=== PATIENT | female | born 1945 | race Caucasian/White ===

== ENCOUNTER 2018-04-19 09:30 | Observation (INO) ==
--- NOTE | 2018-04-19 09:38 | Emergency Department Note ---
Disposition Clinical Impression: Left arm weakness, Left leg weakness Disposition: Admitted As Inpatient Condition: Good Time of Disposition: 11:50 General Adult HPI - General Chief complaint: ED Weakness Stated complaint: left sided weakness Time Seen by Provider: 04/19/18 09:33 Source: patient Mode of arrival: EMS Limitations: no limitations Nursing Notes Reviewed: Yes Vital Signs Reviewed: Yes - History of Present Illness HPI Narrative: Patient states about 9:00 last night she noticed some weakness in her left arm and leg. She pulled something in her hand she has trouble. She has had weakness in the arm since she had her breast removed but this is more than usual. She if she goes to touch her nose her left finger moves onto her cheek rather than her nose. She denies any headaches or visual complaints or any other problems other than intermittent weakness in her legs and then fine motor control difficulty in her left arm Onset (ago): hour(s) (12 hours) Location: left, upper extremity, lower extremity Pain Scale: 0 Consistency: constant Improves with: nothing Worsens with: nothing Associated symptoms: Reports: denies other symptoms Treatments Prior to Arrival: none - Related Data Home Medications Medication Instructions Recorded Confirmed Anastrozole [Arimidex] 1 mg PO DAILY 04/19/18 04/19/18 Atenolol 100 mg PO DAILY 04/19/18 04/19/18 Furosemide [Lasix] 80 mg PO DAILY 04/19/18 04/19/18 Gabapentin 800 mg PO TID 04/19/18 04/19/18 Ketoconazole Shampoo [Nizoral 120 ml TP DAILY 04/19/18 04/19/18 Shampoo] Losartan [Cozaar] 100 mg PO DAILY 04/19/18 04/19/18 Meloxicam [Mobic] 15 mg PO DAILY 04/19/18 04/19/18 Metformin HCl [Glucophage] 1,000 mg PO BID 04/19/18 04/19/18 Triamcinolone Acet 0.1% CRM 1 appl TP BID 04/19/18 04/19/18 [Kenalog] glipiZIDE [Glucotrol] 5 mg PO DAILY 04/19/18 04/19/18 Allergies Allergy/AdvReac Type Severity Reaction Status Date / Time levofloxacin [From Levaquin] AdvReac See Verified 04/19/18 09:44 Comments All systems ED: reviewed and negative except as stated. Review of Systems: As Per HPI Constitutional: Denies: fever, chills, weakness, weight change Eyes: Denies: eye pain, eye discharge, vision change ENT ED: Denies: ear pain, throat pain, dental pain, hearing loss, epistaxis, congestion, dysphagia Cardiovascular: Denies: chest pain, palpitations, dyspnea on exertion, edema, syncope Respiratory: Denies: cough, dyspnea, wheezes, hemoptysis, stridor Gastrointestinal: Denies: abdominal pain, nausea, vomiting, diarrhea, constipation, hematemesis, melena, hematochezia Genitourinary: Denies: dysuria, frequency, hematuria, discharge Musculoskeletal: Reports: as per HPI Integumentary: Denies: rash, abrasion, lesions Neurological: Reports: as per HPI Psychiatric: Denies: anxiety, depression, suicidal thoughts, homicidal thoughts, auditory hallucinations, visual hallucinations Endocrine: Denies: fatigue Hematological/Lymphatic: Denies: easy bleeding, easy bruising Allergic/Immunologic: Reports: as per HPI Past Medical History - Past Medical History Attestation: Yes The following information was validated with the patient. Source: patient, nursing notes reviewed Physical Exam - General Limitations: no limitations General appearance: alert, in no apparent distress - Head Head exam: atraumatic, normocephalic, normal inspection - Eye Eye exam: Present: normal appearance, PERRL, EOMI - ENT ENT exam: normal exam, normal oropharynx, mucous membranes moist - Neck Neck exam: Present: normal inspection, full ROM, trachea midline - Chest Chest inspection: Present: normal inspection, symmetric chest wall rise - Respiratory Respiratory exam: Present: normal lung sounds bilaterally - Cardiovascular Cardiovascular exam: Present: regular rate, normal rhythm, normal heart sounds - Abdominal Exam Abdominal exam: Present: soft, Non-Tender. Absent: tenderness, distention, guarding, rebound, rigidity - Extremities Exam Extremities exam: Present: normal inspection, other (Left upper extremity does seem to have some difficulty with touching her nose. Her movement is inconsistent. Her right upper extremities unremarkable. Her outside physical damage appraiser strength and her leg strength is fine is 5 over 5 and equal bilaterally.) - Back Exam Back exam: Present: normal inspection - Neurological Exam Neurological exam: Present: alert, oriented X3, CN II-XII intact - Psychiatric Psychiatric exam: Present: normal affect, normal mood - Skin Skin exam: Present: warm, dry, intact, normal color Medical Decision Making - MDM Narrative Medical decision making narrative: Patient symptoms are minimal in nature she was able to ambulate from the EMS cot to the ER cot without difficulty and her symptoms present for 12 hours. We did not call a stroke alert - EKG Data EKG #1 EKG attestation: Yes I reviewed and interpreted this EKG. EKG results narrative: EKG shows normal sinus rhythm with a rate of 62 bpm first-degree AV block [place] interval is 259 ms QRS duration 98 ms QT QTC intervals 440 and 447 ms respectively P axis of 60 degrees QRS of -40 3T axis of 97 degrees I reviewed the patient's medication list
[2018-04-19] MEDS ORDERED: 0.9 % Sodium Chloride 1,000 ML IVC SCH (09:45)
[2018-04-19 09:58] LABS: Hematocrit 39.1 % (35.3-44.9); Hemoglobin 12.9 g/dL (11.5-15.4); Mean Corpuscular Hemoglobin 30.2 pg (28.0-33.3); Mean Corpuscular Volume 91.6 fL (83.0-100.0); Mean Platelet Volume 9.3 fL (9.4-12.4); Platelet Count 309 K/mcL (140-400); Red Blood Count 4.27 M/mcL (3.82-4.97); Red Cell Distribution Width 13.1 % (11.5-14.5)
[2018-04-19 10:11] LABS: Activated Partial Thrombo Time 31.2 Seconds (26.0-36.0)
[2018-04-19 10:16] LABS: Alanine Aminotransferase 20 Units/L (7-52); Albumin 4.3 g/dL (3.5-5.7); Albumin/Globulin Ratio 1.3 (1.1-2.2); Alkaline Phosphatase 50 Units/L (34-104); Aspartate Amino Transferase 26 Units/L (13-39); BUN/Creatinine Ratio 20 (6-26); Bilirubin,Total 0.7 mg/dL (0.3-1.0); Blood Urea Nitrogen 20 mg/dL (8-23); Calcium 10.1 mg/dL (8.6-10.3); Carbon Dioxide 32 mEq/L (23-29); Chloride 96 mEq/L (98-107); Globulin 3.2 g/dL (2.4-3.5); Glucose 200 mg/dL (70-105); Osmolality,Calculated 292 (280-300); Potassium 4.1 mEq/L (3.5-5.1); Sodium 137 mEq/L (136-145); Total Protein 7.5 g/dL (6.4-8.9); eGFR For Non-African Americans 55 (> 60)
[2018-04-19 10:19] LABS: Troponin I < 0.03 ng/mL (< 0.04)
[2018-04-19 10:53] LABS: Bilirubin,Urine Negative (Negative); Blood,Urine Negative (Negative); Clarity,Urine Clear (Clear); Color,Urine Yellow (Yellow); Glucose,Urine (UA) 100 mg/dL (Normal); Ketones,Urine Negative (Negative); Leukocyte Esterase,Urine Trace (Negative); Nitrite,Urine Negative (Negative); Protein,Urine Negative (Neg-Trace); Urobilinogen,Urine Normal (Normal)
[2018-04-19 11:04] LABS: RBC,Urine 0-3 per hpf (0-3); Squamous Epithelial Cell,Urine Few per lpf (None-Few)
[2018-04-19] MEDS ORDERED: Naloxone 0.4 MG/ML INJ IVP PRN (13:35)
[2018-04-19] MEDS: Gabapentin 400 MG CAPSULE PO SCH ×2 (15:01→21:08)
[2018-04-19] MEDS: 0.9 % Sodium Chloride 1,000 ML IVC SCH ×2 (15:02→22:34)
--- NOTE | 2018-04-19 15:31 | Electrocardiograph Report ---
[place] [id number] Test Date: 2018-04-19 Pat Name: Gabriella Horton Department: EDP-14 Room: [facility] Gender: F Campaign Assistant: : 1945 Requested By: Britton Call Order Number: [id number] Reading MD: Elvira Sam Measurements Intervals [place] Rate: 62 P: 6 HI: 259 QRS: -43 QRSD: 98 T: 97 QT: 440 QTc: 447 Interpretive Statements Sinus rhythm Prolonged HI interval Left anterior fascicular block Abnormal R-wave progression, late transition Left ventricular hypertrophy Electronically Signed On 04-19-2018 15:29:58 EST by Elvira Sam
[2018-04-19] MEDS: *HR* Metformin 500 MG TABLET PO SCH (17:22)
--- NOTE | 2018-04-19 18:22 | Internal Med History&Physical ---
Date of Encounter: 04/19/18 Time of Encounter: 17:50 Assessment and Plan (1) TIA (transient ischemic attack) Current visit: Yes Status: Acute She is presently on aspirin 81 mg daily at home. Dose will be immediately increased 162 mg daily. Carotid Doppler studies will be ordered. (2) Hypertension Current visit: Yes Status: Chronic Continue Tenormin and monitor blood pressure. Qualifiers: Hypertension type: essential hypertension Qualified Code(s): I10 - Essential (primary) hypertension (3) DM type 2 (diabetes mellitus, type 2) Current visit: Yes Status: Chronic Hemoglobin A1c will be checked in a.m. Qualifiers: Diabetes mellitus terminal computer operator insulin use: without terminal computer operator use Diabetes mellitus complication status: without complication Qualified Code(s): E11.9 - Type 2 diabetes mellitus without complications (4) Diabetic peripheral neuropathy Current visit: Yes Status: Acute Continue gabapentin. (5) Edema Current visit: Yes Status: Acute BN peptide will be ordered in a.m. Continue Lasix and Cozaar. Qualifiers: Edema type: unspecified Qualified Code(s): R60.9 - Edema, unspecified Internal Medicine - H&P: HPI Chief complaint: Left arm and leg weakness Admitted From: Emergency Dept Plans for Post Hospital Care: Home History of present illness: Ms. Horton is a 72 year old female who came to emergency room stating she had developed left arm and leg weakness approximately 9 PM last evening while at leisure. She specifically noticed her left hand was unable to picker operator a cup of water. She felt her walking ability was decreased because of slight left leg weakness. When she awakened this morning her symptoms had slightly improved but were still present so she came to emergency room. She was evaluated and admitted to [facility] floor for ongoing care needs. She states she has had further improvement since coming to emergency room and she feels near baseline function of her left arm and leg. She denies previous similar episodes. She denies diplopia dysphasia or dysarthria. She denies previous large distribution strokes or seizures. She has diabetic peripheral neuropathy. Past Med Surg Social Fam HX - Past Medical History Medical history: arthritis, cancer, diabetes, hypertension Psychiatric history: no psych history - Past Surgical History Surgical History: hysterectomy Additional surgical history: hernia, gallbladder, left mastectomy - Social History Smoking Status: Never smoker Smokeless Tobacco Status: No Alcohol use: none Drug use: none Internal Medicine - H&P: Meds Anastrozole [Arimidex] 1 mg PO DAILY 04/19/18 [History] Atenolol 100 mg PO DAILY 04/19/18 [History] Furosemide [Lasix] 80 mg PO DAILY 04/19/18 [History] Gabapentin 800 mg PO TID 04/19/18 [History] Ketoconazole Shampoo [Nizoral Shampoo] 120 ml TP DAILY 04/19/18 [History] Losartan [Cozaar] 100 mg PO DAILY 04/19/18 [History] Meloxicam [Mobic] 15 mg PO DAILY 04/19/18 [History] Metformin HCl [Glucophage] 1,000 mg PO BID 04/19/18 [History] Triamcinolone Acet 0.1% CRM [Kenalog] 1 appl TP BID 04/19/18 [History] glipiZIDE [Glucotrol] 5 mg PO DAILY 04/19/18 [History] Allergy/AdvReac Type Severity Reaction Status Date / Time levofloxacin [From Levaquin] AdvReac See Verified 04/19/18 09:44 Comments All Systems PM: A 10-system review of systems was performed and is negative for pertinent findings except as documented above in the HPI. Review of systems: Gen.: She states her weight has decreased approximately 12 pounds in the past 3 months, intentionally Cardiovascular: She has history of hypertension but denies PR heart failure angina atrial fibrillation DVT or pulmonary embolus. Respiratory: She is a lifelong nonsmoker and denies chronic lung disease. She has not been tested for sleep apnea. GI: She has had cholecystectomy remotely. She denies disorders of her liver or exocrine pancreas : She denies hematuria dysuria or kidney stones Neurologic: She denies large distribution strokes or seizures. Endocrine: She was diagnosed with DM 2 approximately 1997. She denies thyroid disease or hyperlipidemia Hematology/oncology: She was diagnosed with left breast cancer and had mastectomy December 2012 followed by chemotherapy. She is maintaining on Arimidex and is presumed cancer free. She denies other internal malignancies or anemia Psychiatric: She has feelings of depression at times but does not take medication. She denies anxiety or other mental health issues. [place] skeletal: She has DJD and frequent left shoulder pain. She denies gout or other bone joint or muscle disorders. - Constitutional Vitals: Temp Pulse Resp BP Pulse Ox 98.2 F 62 19 161/91 97 04/19/18 09:31 04/19/18 12:41 04/19/18 12:41 04/19/18 12:41 04/19/18 12:41 Exam: Gen.: She is a well-developed obese female resting comfortably in bed who appears in no acute distress HEENT: Head is atraumatic and normocephalic. Eyes: EOMI. There is no scleral icterus. Mouth: Mucosa is moist. Neck: There is no thyromegaly or adenopathy noted. Heart: Regular without murmurs gallops or ectopics Lungs: No wheezes or crackles are heard. Abdomen: Soft and nontender. No masses or guarding are noted. Extremities: She has 2+ edema of the dorsum the feet bilaterally. There is 1-2+ edema of the lower anterior shins bilaterally. Dorsalis pedis and posterior tibial pulses are nonpalpable. Neurologic: Mental status: She is talkative and a good historian. Cranial nerves: Smile is symmetric. Forehead wrinkles bilaterally. Tongue protrudes midline. EOMI. Motor: There is no pronator drift. Ankle flexion and extension strength against resistance is 2/2 bilaterally. Rapid finger movement testing is symmetric and intact. Cerebellar: Finger to nose is intact bilaterally. Skin: Warm and dry. She has numerous seborrheic keratoses and skin tags on her upper torso and neck. Internal Med - H&P Results - Labs CBC & Chem 7: 04/19/18 09:50 04/19/18 09:50 Labs: Short CBC 04/19/18 Range/Units 09:50 WBC 7.3 (4.3-11.1) K/mcL Hgb 12.9 (11.5-15.4) g/dL Hct 39.1 (35.3-44.9) % Plt Count 309 (140-400) K/mcL BMP 04/19/18 09:50 Sodium 137 Potassium 4.1 Chloride 96 L Carbon Dioxide 32 H BUN 20 Creatinine 0.99 Glucose 200 H Calcium 10.1 Cardiac Enzymes 04/19/18 Range/Units 09:50 Troponin I < 0.03 (< 0.04) ng/mL Liver Function 04/19/18 Range/Units 09:50 Total Bilirubin 0.7 (0.3-1.0) mg/dL AST 26 (13-39) Units/L ALT 20 (7-52) Units/L Alkaline Phosphatase 50 (34-104) Units/L Albumin 4.3 (3.5-5.7) g/dL Urine 04/19/18 Range/Units 10:45 Urine Color Yellow (Yellow) Urine Clarity Clear (Clear) Urine pH 6.0 (5.0-8.0) pH Units Ur Specific [employer] 1.010 (1.010-1.025) Urine Protein Negative (Neg-Trace) mg/dL Urine Glucose (UA) 100 H (Normal) mg/dL - Impressions ITS Impressions Chest X-Ray 04/19/18 09:34 IMPRESSION: No acute findings. D/ / Alvin Stroud MD / Alvin Stroud MD Interpreting Provider: Alvin Stroud MD Head CT 04/19/18 09:34 IMPRESSION: Motion limited study. No convincing evidence for acute intracranial abnormality. D/ / Westley Loomis MD / Westley Loomis MD Interpreting Provider: Westley Loomis MD
[2018-04-19] MEDS: *HR* GlipiZIDE 5 MG TABLET PO SCH (21:08)
[2018-04-19] MEDS: Triamcinolone Acet 0.1% CRM 15 GM TUBE TP SCH (21:08)
[2018-04-19] MEDS: Aspirin 81 MG TAB.CHEW PO SCH (21:08)
[2018-04-20 04:57] LABS: Basophils % 0.6 %; Eosinophils # 0.3 K/mcL (0.0-0.6); Eosinophils % 4.2 %; Hematocrit 38.3 % (35.3-44.9); Hemoglobin 12.7 g/dL (11.5-15.4); Immature Granulocytes % 0.4 % (0-4); Lymphocytes # 1.3 K/mcL (0.6-4.6); Lymphocytes % 18.7 %; Mean Corpuscular HGB Conc 33.2 g/dL (31.6-35.5); Mean Corpuscular Hemoglobin 30.1 pg (28.0-33.3); Mean Corpuscular Volume 90.8 fL (83.0-100.0); Mean Platelet Volume 9.4 fL (9.4-12.4); Monocytes # 0.4 K/mcL (0.0-1.3); Monocytes % 6.2 %; Neutrophils # 4.9 K/mcL (1.6-8.9); Platelet Count 310 K/mcL (140-400); Red Blood Count 4.22 M/mcL (3.82-4.97); Segmented Neutrophils % 69.9 %
[2018-04-20 05:15] LABS: BUN/Creatinine Ratio 21 (6-26); Blood Urea Nitrogen 19 mg/dL (8-23); Calcium 9.9 mg/dL (8.6-10.3); Carbon Dioxide 30 mEq/L (23-29); Chloride 100 mEq/L (98-107); Glucose 185 mg/dL (70-105); Osmolality,Calculated 293 (280-300); Potassium 3.7 mEq/L (3.5-5.1); Sodium 138 mEq/L (136-145); eGFR For Non-African Americans > 60 (> 60)
[2018-04-20] MEDS ORDERED: *HR* GlipiZIDE 5 MG TABLET PO SCH (08:00)
[2018-04-20] MEDS: Gabapentin 400 MG CAPSULE PO SCH (08:33)
[2018-04-20] MEDS: *HR* GlipiZIDE 5 MG TABLET PO SCH (08:34)
[2018-04-20] MEDS: Aspirin 81 MG TAB.CHEW PO SCH (08:34)
[2018-04-20] MEDS: *HR* Metformin 500 MG TABLET PO SCH (08:34)
[2018-04-20] MEDS: Triamcinolone Acet 0.1% CRM 15 GM TUBE TP SCH (08:35)
[2018-04-20] MEDS ORDERED: Anastrozole 1 MG TABLET PO SCH (09:00)
[2018-04-20] MEDS ORDERED: Furosemide 40 MG TABLET PO SCH (09:00)
[2018-04-20] MEDS ORDERED: Ketoconazole Shampoo 120 ML BOTTLE TP SCH (09:00)
[2018-04-20 10:55] VITALS: BP 156/74
--- NOTE | 2018-04-20 13:47 | Discharge Summary ---
Orders not resulted at time of discharge: Pending orders 04/20/18 11:19 Hgb A1C Routine Date of Encounter: 04/20/18 Time of Encounter: 13:39 - Discharge Diagnosis (1) TIA (transient ischemic attack) Priority: Primary Status: Resolved (2) Hypertension Priority: Secondary Status: Chronic Qualifiers: Hypertension type: essential hypertension Qualified Code(s): I10 - Essential (primary) hypertension (3) DM type 2 (diabetes mellitus, type 2) Priority: Secondary Status: Chronic Qualifiers: Diabetes mellitus dispatcher service or work insulin use: without dispatcher service or work use Diabetes mellitus complication status: without complication Qualified Code(s): E11.9 - Type 2 diabetes mellitus without complications (4) Diabetic peripheral neuropathy Priority: Secondary Status: Acute (5) Edema Priority: Secondary Status: Acute Qualifiers: Edema type: unspecified Qualified Code(s): R60.9 - Edema, unspecified Hospital course: Ms. Horton is a 72 year old female who came to emergency room stating she had developed left arm and leg weakness approximately 9 PM last evening while at leisure. She specifically noticed her left hand was unable to pick remover a cup of water. She felt her walking ability was decreased because of slight left leg weakness. When she awakened this morning her symptoms had slightly improved but were still present so she came to emergency room. She was evaluated and admitted to [facility] for ongoing care needs. Initial orders were written by the emergency room physician. I saw her on April 19 and performed a history and physical. When I saw her she had no neurologic deficits. Aspirin dose was increased from her home dose of 81 mg daily to a dose of 162 mg daily. Carotid Doppler studies were ordered. Final report is pending at time of discharge but preliminary report stated only minimal plaque noted bilaterally. She had no new neurologic problems develop and felt stable for discharge home when I saw her on April 20. Blood pressure remained above desirable range. Norvasc 5 mg daily will be added to her home regimen. Hemoglobin A1c was ordered with results pending at time of discharge. She will follow with her PCP Dr. Mckeon within 1 week. Consideration for reducing Neurontin dose to lessen edema (? transition to Cymbalta) can be made by Dr. Mckeon. - Time Spent with Patient Total time spent providing and/or coordinating discharge services: - Discharge Medications Prescriptions: amLODIPine [Norvasc] 5 mg PO DAILY #30 tablet Home Medications: Anastrozole [Arimidex] 1 mg PO DAILY 04/19/18 [History] Atenolol 100 mg PO DAILY 04/19/18 [History] Furosemide [Lasix] 80 mg PO DAILY 04/19/18 [History] Gabapentin 800 mg PO TID 04/19/18 [History] Ketoconazole Shampoo [Nizoral Shampoo] 120 ml TP DAILY 04/19/18 [History] Losartan [Cozaar] 100 mg PO DAILY 04/19/18 [History] Metformin HCl [Glucophage] 1,000 mg PO BID 04/19/18 [History] Triamcinolone Acet 0.1% CRM [Kenalog] 1 appl TP BID 04/19/18 [History] glipiZIDE [Glucotrol] 5 mg PO DAILY 04/19/18 [History] Aspirin 162 mg PO DAILY tab.chew 04/20/18 [Rx] amLODIPine [Norvasc] 5 mg PO DAILY #30 tablet 04/20/18 [Rx] Allergies/Adverse Reactions: Allergy/AdvReac Type Severity Reaction Status Date / Time levofloxacin [From Levaquin] AdvReac See Verified 04/19/18 09:44 Comments Date of admission: 04/19/18 12:17 Primary care physician: Jonathan Mckeon MD Consults: 04/19/18 13:35 Consult to Physical Therapy [CONS] Routine Comment: Evaluate, develop and implement POC Reason for Consult: left arm / leg weakness Does patient have active BEDREST order?: No Is patient medically & hemodynamically stable?: Yes Patient assessed for mobility or mobilized this visit?: No - Constitutional Vitals: Temp Pulse Resp BP Pulse Ox 97.6 F 60 16 156/74 96 04/20/18 10:54 04/20/18 10:54 04/20/18 10:54 04/20/18 10:54 04/20/18 10:54 - Patient Status Disposition: Home, Self-Care Condition: Good - Discharge Instructions Follow Up With: Jonathan Mckeon MD [Partnered Physician] - 1 week - Diet and Activity Activity: resume usual activities as tolerated Diet: diabetic diet
[2018-04-20 17:39] LABS: Estimated Average Glucose 180 mg/dl; Hemoglobin A1C 7.9 %
== END 2018-04-20 15:24 | disposition home or self-care (01) ==
LOC: EMEROOPIK 09:30 → INPPIK 09:30
PROVIDERS: ADMIT Internal Medicine; ATTEND Internal Medicine